=== PATIENT | male | born 1945 | race Caucasian/White ===

== ENCOUNTER 2016-12-20 08:08 | Outpatient (CLI) | payer MEDICARE ==
--- NOTE | 2016-12-20 09:07 | RAD ---
3 VIEWS RIGHT SHOULDER: Date: 12/20/16 COMPARISON: None. HISTORY: Right shoulder pain after pulling a cart. FINDINGS: Three views of the right shoulder show severe degenerative changes in the glenohumeral and acromiocl avicular joints. There appear to be loose intracapsular osseous bodies in the right shoulder joint. There is no evidence of acute fracture or dislocation. IMPRESSION: Severe right shoulder osteoarthritis. POS: [facility]
== END 2016-12-20 08:09 | disposition home or self-care (01) ==
LOC: BURRAD 08:08
PROVIDERS: ATTEND Family Medicine
DX: M25.511 Pain in right shoulder (principal); M19.011 Primary osteoarthritis, right shoulder

== ENCOUNTER 2017-05-28 12:40 | Emergency (ER) | payer MEDICARE ==
[2017-05-28] MEDS ORDERED: HYDROcodone/Acetaminophen 5/325 mg Tablet ONE (13:20)
--- NOTE | 2017-05-28 15:08 | RAD ---
3 VIEWS RIGHT ELBOW: Date: 05/28/17 HISTORY: Pain right elbow. Denies injury. FINDINGS: AP, lateral, and oblique views of right elbow obtained. No evidence of acute right elbow fractures, subluxations, or bony lesions seen. IMPRESSION: No evidence of acute right elbow pathology seen. POS: [facility]
== END 2017-05-28 13:30 | disposition home or self-care (01) ==
LOC: BURERS 12:40
DX: M77.11 Lateral epicondylitis, right elbow (principal); F17.210 Nicotine dependence, cigarettes, uncomplicated; Z85.038 Personal history of other malignant neoplasm of large intestine; Z85.048 Personal history of other malignant neoplasm of rectum, rectosigmoid junction, and anus

== ENCOUNTER 2018-09-04 14:02 | Emergency (ER) | payer MEDICARE ==
[2018-09-04] MEDS ORDERED: Sodium Chloride 0.9% 100 ML ONE (14:46)
[2018-09-04] MEDS ORDERED: cefTRIAXone\\ROCEPHIN 1 GM VIAL ONE ×2 (14:46→14:50)
[2018-09-04 14:53] LABS: #Basophils 0.1 thou/uL (0.0-0.2); #Eosinphils 0.1 thou/uL (0.0-0.7); #Lymphocytes 1.9 thou/uL (1.20-3.40); #Monocytes 1.2 thou/uL (0.11-0.59); #Neutrophils 5.5 thou/uL (1.40-6.50); %Basophils 1.7 % (0.0-1.0); %Eosinophils 0.8 % (0.0-10.0); %Lymphocytes 22.1 % (21.0-51.0); %Monocytes 13.2 % (0.0-10.0); %Neutrophils 62.2 % (42.0-75.0); Hemoglobin 14.6 g/dL (14.0-18.0); MDiff Complete? YES; Manual Diff?? NO; Mean Corpuscular HGB CONC 35.8 g/dL (32.0-36.0); Mean Corpuscular Hemoglobin 34.9 pg (27.0-31.0); Mean Corpuscular Volume 97.4 fL (78.0-98.0); Mean Platelet Volume 6.9 fL (7.4-10.4); Platelet Count 336 thou/uL (130-400); RBC Distribution Width 10.7 % (11.5-14.5); Red Blood Cell (RBC) Count 4.19 mill/uL (4.70-6.10); White Blood Cell (WBC) Count 8.8 thou/uL (4.8-10.8)
[2018-09-04 15:04] LABS: ALT (SGPT) 23 U/L (8-55); AST (SGOT) 23 U/L (5-34); Alkaline Phosphatase 53 U/L (40-150); Anion Gap 12 mmol/L (10-20); BUN (Urea Nitrogen) 5 mg/dL (8.4-25.7); Bilirubin, Total 0.4 mg/dL (0.2-1.2); Calc. Creatinine Clearance 0 mL/min (70-130); Carbon Dioxide 30 mmol/L (23-31); Chloride 97 mmol/L (98-107); Estimated GFR-MDRD Greater than 90; Globulin 3.4 g/dL (2.4-3.5); Glucose 83 mg/dL (80-115); Potassium 3.9 mmol/L (3.5-5.1); Protein, Total 7.4 g/dL (5.8-8.1); Sodium 135 mmol/L (136-145)
--- NOTE | 2018-09-04 15:54 | RAD ---
LEFT INDEX FINGER: DATE: 09/04/2018. FINDINGS: There is narrowing of the 2nd and 3rd MCP joints. There may be some calcification in the soft tissue s around these joints. I do not see bony erosions, per say. Only a portion of the carpals were visi ble, and that portion appeared unremarkable. No bony fracture or area of bony destruction was seen. IMPRESSION: 1. No acute bony findings. 2. Narrowed 2nd and 3rd metacarpophalangeal joints. 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 POS: [facility]
== END 2018-09-04 15:00 | disposition home or self-care (01) ==
LOC: BURERS 14:02
DX: L98.9 Disorder of the skin and subcutaneous tissue, unspecified (principal); F17.210 Nicotine dependence, cigarettes, uncomplicated
CPT/HCPCS: 36415; 80053; 85025; 87070; 87205; 96374; J0696; J7050

== ENCOUNTER 2019-05-02 11:18 | Outpatient (CLI) | payer MEDICARE, MEDICAID ==
--- NOTE | 2019-05-02 11:49 | RAD ---
EXAM: 3 views of the lumbosacral spine HISTORY: Low back pain COMPARISON: None FINDINGS: 3 views of the lumbosacral spine shows normal height and alignment of the vertebral bodies without fracture or subluxation. Intervertebral discs are narrowed throughout the lumbar spine. Moderate degenerative changes are seen with osteophytes surrounding the intervertebral discs and post erior facet arthrosis in the lower lumbosacral spine. Vascular calcifications are seen in the aorta. IMPRESSION: Moderate degenerative changes of the lumbar spine without acute osseous abnormality.
== END 2019-05-02 11:19 | disposition home or self-care (01) ==
LOC: BURRAD 11:18
PROVIDERS: ATTEND Family Medicine
DX: M54.5 Low back pain (principal); M47.816 Spondylosis without myelopathy or radiculopathy, lumbar region
CPT/HCPCS: 72100

== ENCOUNTER 2025-05-12 18:45 | Emergency (ER) | payer OTHER ==
[2025-05-12 19:30] LABS: INR-International Normal Ratio 1.3; Prothrombin Time 16.8 sec (12.0-14.7)
[2025-05-12 19:37] LABS: ALT (SGPT) 23 U/L (Less than 45); AST (SGOT) 31 U/L (11-34); Albumin 3.4 g/dL (3.1-4.5); Alkaline Phosphatase 59 U/L (40-110); Anion Gap 16 mmol/L (10-20); BUN (Urea Nitrogen) 24 mg/dL (8.4-25.7); Bilirubin, Total 1.6 mg/dL (0.3-1.2); Calc. Creatinine Clearance 0 mL/min (70-130); Calcium 9.8 mg/dL (7.8-10.44); Carbon Dioxide 23 mmol/L (23-31); Chloride 91 mmol/L (98-107); Globulin 3.7 g/dL (2.4-3.5); Glucose 134 mg/dL (83-110); Potassium 4.0 mmol/L (3.5-5.1); Sodium 126 mmol/L (136-145)
[2025-05-12 19:49] LABS: Hematocrit 42.7 % (42.0-52.0); Hemoglobin 15.7 g/dL (14.0-18.0); Mean Corpuscular Hemoglobin 36.0 pg (27.0-31.0); Mean Corpuscular Volume 98.3 fl (78.0-98.0); Platelet Count 159 10x3/uL (130-400); Red Blood Cell (RBC) Count 4.35 mill/uL (4.70-6.10); White Blood Cell (WBC) Count 25.0 10x3/uL (4.8-10.8)
[2025-05-12 19:54] LABS: MDiff Complete? YES; Platelet Adequacy Comment Appears Adequate
[2025-05-12 22:47] LABS: Sodium 128 mmol/L (136-145)
== END 2025-05-13 00:06 | disposition short-term general hospital (02) ==
LOC: BURERS 18:45
DX: A41.9 Sepsis, unspecified organism (principal); R65.20 Severe sepsis without septic shock; L03.114 Cellulitis of left upper limb; E87.1 Hypo-osmolality and hyponatremia; N28.89 Other specified disorders of kidney and ureter; F17.210 Nicotine dependence, cigarettes, uncomplicated
CPT/HCPCS: 71260; 74178; 80053; 83605; 84295; 85025; 85610; 87040; J2272; J2543; 36415; 96365; 96375

== ENCOUNTER 2025-09-28 18:04 | Emergency (ER) | payer OTHER ==
[2025-09-28 19:03] LABS: ALT (SGPT) 23 U/L (Less than 45); AST (SGOT) 35 U/L (11-34); Albumin 3.5 g/dL (3.1-4.5); Alkaline Phosphatase 91 U/L (40-110); Anion Gap 17 mmol/L (10-20); BUN (Urea Nitrogen) 14 mg/dL (8.4-25.7); Bilirubin, Total 0.7 mg/dL (0.3-1.2); Calc. Creatinine Clearance 0 mL/min (70-130); Calcium 9.3 mg/dL (7.8-10.44); Carbon Dioxide 22 mmol/L (23-31); Chloride 96 mmol/L (98-107); Globulin 3.9 g/dL (2.4-3.5); Glucose 146 mg/dL (83-110); Potassium 4.2 mmol/L (3.5-5.1); Sodium 131 mmol/L (136-145)
[2025-09-28 19:05] LABS: #Basophils 0.1 thou/uL (0.0-0.2); #Eosinophils 0.1 thou/uL (0.0-0.7); #Lymphocytes 2.7 thou/uL (1.20-3.40); #Monocytes 0.7 thou/uL (0.11-0.59); #Neutrophils 6.1 thou/uL (1.40-6.50); %Basophils 1.4 % (0.0-1.0); %Eosinophils 1.4 % (0.0-10.0); %Lymphocytes 27.3 % (21.0-51.0); %Monocytes 7.5 % (0.0-10.0); %Neutrophils 62.5 % (42.0-75.0); Hematocrit 45.7 % (42.0-52.0); Hemoglobin 15.0 g/dL (14.0-18.0); Mean Corpuscular Hemoglobin 34.6 pg (27.0-31.0); Mean Corpuscular Volume 106.0 fl (78.0-98.0); Platelet Count 325 10x3/uL (130-400); Red Blood Cell (RBC) Count 4.33 mill/uL (4.70-6.10); White Blood Cell (WBC) Count 9.7 10x3/uL (4.8-10.8)
[2025-09-28 19:07] LABS: Macrocytosis MODERATE=16-30 cells (100X) (0-5/hpf); Spherocytes SLIGHT = 1-5 cells (100X) (None Seen)
[2025-09-28] MEDS ORDERED: Benzonatate 100 MG CAP ONE (19:41)
[2025-09-28] MEDS ORDERED: Cephalexin 250 MG CAP ONE (20:36)
[2025-09-28] MEDS ORDERED: Clindamycin 150 MG CAP ONE (20:36)
== END 2025-09-28 21:25 | disposition home or self-care (01) ==
LOC: BURERS 18:04
DX: L03.114 Cellulitis of left upper limb (principal); L03.113 Cellulitis of right upper limb; E87.1 Hypo-osmolality and hyponatremia; F17.210 Nicotine dependence, cigarettes, uncomplicated; Z55.6 Problems related to health literacy; Z23 Encounter for immunization; Z79.899 Other long term (current) drug therapy
CPT/HCPCS: 80053; 85025; 90471; 90715